=== PATIENT | female | born 1965 | race African-American/Black ===

== ENCOUNTER 2016-12-02 10:40 | Inpatient (IN) | payer MEDICARE, OTHER ==
[~2016-12-02] VITALS: Ht 152.4 cm; Wt 62.1 kg
[~2016-12-02 10:40] MED LIST: ALBU18HF2 IH; AM100 PO; AMIT150T PO; BUDE6.9H IH; LOSA25TA12 PO; PROT40 PO
[2016-12-02 11:44] LABS: BASOPHILS % 0.8 % (0.0-2.0); EOSINOPHILS % 3.4 % (0.0-5.0); HEMOGLOBIN. 12.4 g/dL (12.0-16.0); LYMPHOCYTES % 28.8 % (20.0-50.0); MEAN CORPUSCULAR HEMOGLOBIN 31.1 pg (28.0-32.0); MEAN PLATELET VOLUME 8.9 fl (7.4-10.4); MONOCYTES % 8.4 % (2.0-8.0); NEUTROPHILS % 58.6 % (40.0-76.0); PLATELET 211 x1000/uL (130-400); RED BLOOD CELL COUNT 3.98 mill/uL (4.2-5.4); RED CELL DISTRIBUTION WIDTH 13.9 % (11.6-14.6)
[2016-12-02 11:46] LABS: CLARITY URINE CLEAR (CLEAR); COLOR URINE YELLOW (YELLOW); GLUCOSE URINE NEGATIVE (NEGATIVE); KETONES URINE NEGATIVE (NEGATIVE); LEUKOCYTE ESTERASE URINE NEGATIVE (NEGATIVE); NITRITE URINE NEGATIVE (NEGATIVE); OCCULT BLOOD URINE NEGATIVE (NEGATIVE); PH URINE 5.5 (4.5-8.0); PROTEIN URINE NEGATIVE (NEGATIVE); UROBILINOGEN URINE 0.2 E.U./dL (0.2-1.0)
[2016-12-02 11:49] LABS: UCG SCREEN NEGATIVE
[2016-12-02 11:50] LABS: CHLORIDE 105 mEq/L (98-107)
[2016-12-02 11:54] LABS: INR 0.9; PARTIAL THROMBOPLASTIN TIME 26.1 sec (23.4-31.0); PROTHROMBIN TIME 9.8 sec (9.4-11.6)
[2016-12-02 11:59] LABS: CARBON DIOXIDE 29 mEq/L (21-32)
[2016-12-02] MEDS: SODIUM CHLORIDE 0.9% 1,000 ML IV SCH (13:00)
[2016-12-02] MEDS ORDERED: LABETALOL HCL 5MG/ML VIAL 20ML IV ONE (14:06)
[2016-12-02] MEDS ORDERED: HYDROMORPHONE HCL/PF 2MG/ML CPJ IV PRN (14:15)
[2016-12-02] MEDS ORDERED: LABETALOL HCL 20MG/4ML CARPUJECT IV PRN (14:15)
[2016-12-02] MEDS ORDERED: MEPERIDINE HCL/PF 25MG/ML CPJ IV PRN (14:15)
[2016-12-02] MEDS ORDERED: ONDANSETRON HCL 4MG/2ML VIAL IV PRN (14:15)
[2016-12-02] MEDS ORDERED: HYDROMORPHONE HCL/PF 2MG/ML (OR) ONE (14:19)
[2016-12-02] MEDS ORDERED: DEXAMETHASONE 4MG/ML 1ML VIAL ONE (14:22)
[2016-12-02] MEDS ORDERED: PROPOFOL 200MG/20ML VIAL IV ONE (14:22)
[2016-12-02] MEDS ORDERED: CEFAZOLIN SODIUM 1000MG/VIAL ONE (14:22)
[2016-12-02] MEDS ORDERED: ROCURONIUM BROMIDE 10MG/ML VIAL 5ML IV ONE (14:22)
[2016-12-02] MEDS ORDERED: HYDRALAZINE 20MG/ML VIAL ONE (14:22)
[2016-12-02] MEDS: MORPHINE SULFATE 4 MG/ML CPJ (NOT FOR IM USE) IV PRN ×2 (19:17→23:38)
[2016-12-02 20:00] VITALS: BP 120/81
[2016-12-02] MEDS: ONDANSETRON HCL 4MG/2ML VIAL IV PRN (20:26)
[2016-12-03] VITALS: BP 167/87
[2016-12-03] MEDS ORDERED: LORAZEPAM 2MG/ML CPJ IV PRN (01:45)
[2016-12-03] MEDS: MORPHINE SULFATE 4 MG/ML CPJ (NOT FOR IM USE) IV PRN ×3 (02:49→20:46)
[2016-12-03 04:00] VITALS: BP_SYST 154; BP_DIAS 86; BP_DIAS 92
[2016-12-03] MEDS ORDERED: IBUPROFEN 800MG TABLET PO PRN (07:00)
[2016-12-03 07:07] LABS: HEMATOCRIT. 33.2 % (36.0-48.0); MEAN CORPUSCULAR VOLUME 93.8 fL (81.0-99.0); MEAN PLATELET VOLUME 9.9 fl (7.4-10.4); PLATELET 204 x1000/uL (130-400); RED BLOOD CELL COUNT 3.54 mill/uL (4.2-5.4); RED CELL DISTRIBUTION WIDTH 13.7 % (11.6-14.6)
[2016-12-03 08:00] VITALS: BP 165/92
[2016-12-03] MEDS: DOCUSATE SODIUM 100MG CAPSULE PO SCH ×2 (08:59→17:11)
[2016-12-03] MEDS: HYDROCODONE/ACETAMINOPHEN 5/325MG TABLET PO PRN (10:40)
[2016-12-03 12:00] VITALS: BP 137/116
[2016-12-03 16:00] VITALS: BP 158/78
[2016-12-03 20:00] VITALS: BP 140/71
[2016-12-03 22:12] LABS: PLATELET ESTIMATE NORMAL
[2016-12-04] VITALS: BP 143/86
[2016-12-04] MEDS: MORPHINE SULFATE 4 MG/ML CPJ (NOT FOR IM USE) IV PRN ×2 (00:17→08:59)
[2016-12-04] MEDS: HYDROCODONE/ACETAMINOPHEN 5/325MG TABLET PO PRN ×4 (02:59→20:55)
[2016-12-04 04:00] VITALS: BP 126/72
[2016-12-04 08:00] VITALS: BP 130/60
[2016-12-04] MEDS: DOCUSATE SODIUM 100MG CAPSULE PO SCH ×2 (09:02→17:22)
[2016-12-04 12:00] VITALS: BP 140/80
[2016-12-04] MEDS: ONDANSETRON HCL 4MG/2ML VIAL IV PRN (13:02)
[2016-12-04] MEDS ORDERED: BISACODYL 10MG SUPP PR PRN (14:30)
[2016-12-04] MEDS: SODIUM CHLORIDE 0.9% 1,000 ML IV SCH (15:03)
[2016-12-04 15:24] VITALS: BP 129/71
[2016-12-04] MEDS: LOSARTAN POTASSIUM 25 MG TABLET PO SCH (15:26)
[2016-12-04] MEDS: PANTOPRAZOLE 40MG DR TABLET PO SCH (15:27)
[2016-12-04 16:00] VITALS: BP 123/69
[2016-12-04] MEDS ORDERED: NA PHOS,M-B/NA PHOS,DI-BA ENEMA 118ML PR NR (16:45)
[2016-12-04] MEDS ORDERED: MAGNESIUM HYDROXIDE 400MG/5ML 30ML UDC PO PRN (16:45)
[2016-12-04 19:48] LABS: HEMATOCRIT. 32.1 % (36.0-48.0); HEMOGLOBIN. 10.7 g/dL (12.0-16.0); MEAN CORPUSCULAR HEMOGLOBIN 31.1 pg (28.0-32.0); MEAN CORPUSCULAR VOLUME 93.2 fL (81.0-99.0); PLATELET 204 x1000/uL (130-400); RED BLOOD CELL COUNT 3.44 mill/uL (4.2-5.4); RED CELL DISTRIBUTION WIDTH 13.5 % (11.6-14.6)
[2016-12-04] MEDS ORDERED: AMITRIPTYLINE 50MG TABLET PO SCH (21:00)
[2016-12-05] MEDS: HYDROCODONE/ACETAMINOPHEN 5/325MG TABLET PO PRN ×4 (01:10→15:03)
[2016-12-05 08:00] VITALS: BP 132/77
[2016-12-05] MEDS: PANTOPRAZOLE 40MG DR TABLET PO SCH (08:58)
[2016-12-05] MEDS: DOCUSATE SODIUM 100MG CAPSULE PO SCH (08:58)
[2016-12-05] MEDS: LOSARTAN POTASSIUM 25 MG TABLET PO SCH (08:58)
[2016-12-05 12:00] VITALS: BP 123/66
[2016-12-05 13:15] LABS: PLATELET ESTIMATE NORMAL
[2016-12-05 16:17] VITALS: BP 123/66
== END 2016-12-05 16:50 | disposition home or self-care (01) | DRG 743 ==
LOC: OR 10:40 → 6EST 17:30
PROVIDERS: ADMIT Obstetrics & Gynecology; ATTEND Obstetrics & Gynecology
PROC: 0UTC0ZZ Resection of Cervix, Open Approach (ICD-10-PCS; 2016-12-02)
PROC: 0UT90ZZ Resection of Uterus, Open Approach (ICD-10-PCS; principal; 2016-12-02 16:00)
DX: D25.9 Leiomyoma of uterus, unspecified (principal); I10 Essential (primary) hypertension; N93.9 Abnormal uterine and vaginal bleeding, unspecified
CPT/HCPCS: 36415; 71010; 80053; 81003; 81025; 85007; 85025; 85027; 85610; 85730; 86850; 86900; 88307; 93005; J0360; J0690; J1100; J1170; J2060; J2175; J2270; J2405; J2704; J3490; J7030